=== PATIENT | male | born 1940 | race Caucasian/White ===

== ENCOUNTER 2021-10-22 08:53 | Outpatient (CLI) | payer OTHER ==
[~2021-10-22 08:53] MED LIST: LISINOPRIL2.5 MG PO; TOPROL XL25 MG PO; TORADOL10 MG PO
== END 2021-10-22 09:05 | disposition home or self-care (01) ==
LOC: RAD 08:53
PROVIDERS: ATTEND Internal Medicine Gastroenterology
DX: R19.5 Other fecal abnormalities (principal); K30 Functional dyspepsia; I11.9 Hypertensive heart disease without heart failure